=== PATIENT | male | born 1955 | race Two or more races ===

== ENCOUNTER 2016-09-19 13:11 | Emergency (ER) | payer OTHER ==
[~2016-09-19] VITALS: Ht 162.6 cm; Wt 72.6 kg
[2016-09-19] MEDS ORDERED: MIRALAX119 GM PO (14:21)
[2016-09-19] MEDS ORDERED: COLACE100 MG ORAL (14:21)
[2016-09-19 14:37] VITALS: BP 128/79
--- NOTE | 2016-09-19 14:42 | Diagnostic Imaging Report ---
Indications: Abdominal pain. Technique: AP view of the abdomen Findings: Comparison: None. Increased feces throughout colon. Bowel gas pattern is otherwise unremarkable. No abnormal calcific or soft tissue densities are demonstrated. Minimal scoliosis in thoracolumbar spine.. IMPRESSION: No evidence of acute abdominopelvic disease Constipation Minimal scoliosis.
--- NOTE | 2016-09-19 21:26 | Emergency Room Report ---
History of Present Illness General Chief Complaint: Abdominal Pain Source: Patient Present Illness HPI The patient is a 60-year-old male presenting with abdominal pain. The patient states that he is experiencing 5/10 dull ache to the entire abdomen. Patient states that he has been constipated over the past week. The patient's last bowel movement was yesterday and painful. Patient denies any bleeding from the anus or hemorrhoid. The patient denies any other symptoms including nausea, vomiting, fever, chills, flank pain, dysuria, hematuria Allergies: Coded Allergies: No Known Allergies (Unverified , 09/19/16) Patient History Past Medical History: see triage record Pertinent Family History: none Reviewed Nursing Documentation: PMH: Agreed, PSxH: Agreed Nursing Documentation-PMH Past Medical History: No History, Except For Hx Cardiac Problems: Yes - [place] x 2 last heart attack 2010 Hx Hypertension: Yes Hx Diabetes: Yes Review of Systems All Other Systems: negative except mentioned in HPI Physical Exam Vital Signs Date Time Temp Pulse Resp B/P Pulse Ox O2 Delivery O2 Flow Rate FiO2 09/19/16 12:59 98.1 74 16 163/71 99 Room Air Sp02 EP Interpretation: reviewed, normal General Appearance: alert, GCS 15, non-toxic, mild distress Head: normocephalic, atraumatic Eyes: bilateral eye PERRL, bilateral eye normal inspection Respiratory: chest non-tender, lungs clear, normal breath sounds, speaking full sentences Gastrointestinal: normal bowel sounds, soft, no guarding, no rebound, distended - minimally, tenderness - diffuse Genitourinary: normal inspection, no CVA tenderness Musculoskeletal: back normal, gait/station normal, normal range of motion, non- tender Neurologic: alert, oriented x3, responsive, motor strength/tone normal, sensory intact, speech normal Psychiatric: judgement/insight normal, memory normal, mood/affect normal, no suicidal/homicidal ideation Skin: normal color, no rash, warm/dry, well hydrated Lymphatic: no adenopathy Medical Decision Making PA Attestation Dr. pollard is my supervising physician. Patient management was discussed with my supervising physician Diagnostic Impression: Primary Impression: Constipation ER Course The patient is a 60-year-old male presenting with constipation and abdominal pain Differential diagnoses considered but not limited to: Constipation, diverticulitis, hemorrhoids, gastroenteritis Physical exam: Vitals within normal limits at time of discharge. Mild distress. Abdomen is soft and mildly distended. Normal bowel sounds. There is diffuse tenderness to palpation. No discoloration. Abdominal x-ray shows constipation Patient will be discharged home with a prescription for MiraLAX and Colace. ER precautions are given and the patient will followup with PMD Other X-Ray Diagnostic Results Other X-Ray Diagnostic Results : X-Ray Ordered: Abd xray Date: Sep 19, 2016 EP Interpretation: Yes Findings: other - constipation PA Scribe Text Constipation Minimal scoliosis. I am acting as scribe for my supervising physician. Last Vital Signs Date Time Temp Pulse Resp B/P Pulse Ox O2 Delivery O2 Flow Rate FiO2 09/19/16 14:37 76 14 128/79 99 Room Air 09/19/16 14:37 97.8 Status: improved Disposition: HOME, SELF-CARE Condition: Improved Scripts Docusate Sodium* (COLACE*) 100 Mg Capsule 100 MG ORAL TWICE A DAY, #30 CAP Prov: SUKHI GALVAN 09/19/16 Polyethylene Glycol 3350 (MIRALAX) 119 Gm Powder 17 GM PO DAILY, #119 GM Prov: SUKHI GALVAN P.A. 09/19/16 Referrals: NOT CHOSEN IPA/MD,REFERRING Patient Instructions: Constipation, Adult Additional Instructions: I discussed my findings with the patient. All questions and concerns have been answered. Treatment and medication compliance have been addressed. I advised the patient that they need to follow up with PMD in 3-5 days. Return to ED if symptoms worsen, new symptoms arise, or if needed for any reason. Patient verbalized understanding of discharge instructions. SUKHI GALVAN Sep 19, 2016 21:26
== END 2016-09-19 14:43 | disposition home or self-care (01) ==
LOC: EDBD 13:11 → EMR 13:50
DX: K59.00 Constipation, unspecified (principal); E11.9 Type 2 diabetes mellitus without complications; I10 Essential (primary) hypertension; I25.2 Old myocardial infarction; M41.9 Scoliosis, unspecified
CPT/HCPCS: 74000; 99284